=== PATIENT | female | born 1985 | race Two or more races ===

== ENCOUNTER 2020-11-05 23:17 | Emergency (ER) | payer SELFPAY ==
[~2020-11-05] VITALS: Ht 157.5 cm; Wt 49.9 kg
[2020-11-05] MEDS ORDERED: FAMOTIDINE (10MG/ML) 2ML VL IV ONE (23:45)
[2020-11-05] MEDS ORDERED: methylPREDNISolone SOD SUCC 125 MG/2 ML VL IV ONE (23:45)
[2020-11-06 01:00] VITALS: BP 103/69
== END 2020-11-06 01:23 | disposition home or self-care (01) ==
LOC: ER 23:17
DX: H05.221 Edema of right orbit (principal); T50.995A Adverse effect of other drugs, medicaments and biological substances, initial encounter; Y92.89 Other specified places as the place of occurrence of the external cause
CPT/HCPCS: 96374; 96375; 99284; J3490

== ENCOUNTER 2020-11-28 16:14 | Emergency (ER) | payer SELFPAY ==
[~2020-11-28] VITALS: Ht 154.9 cm; Wt 54.4 kg
[2020-11-28] MEDS ORDERED: diphenhdrAMINE HCL 50 MG/1 ML VL IM ONE (16:45)
[2020-11-28] MEDS ORDERED: methylPREDNISolone SOD SUCC 125 MG/2 ML VL IM ONE (16:45)
[2020-11-28 16:51] VITALS: BP 106/73
== END 2020-11-28 17:13 | disposition home or self-care (01) ==
LOC: ER 16:14
DX: T78.49XA Other allergy, initial encounter (principal); X58.XXXA Exposure to other specified factors, initial encounter
CPT/HCPCS: 96372; 99284; J1200; J2930

== ENCOUNTER 2022-08-01 18:45 | Emergency (ER) | payer SELFPAY ==
[~2022-08-01] VITALS: Ht 157.5 cm; Wt 49.5 kg
[2022-08-01 19:41] LABS: Urine Bacteria FEW /hpf (None Seen); Urine Blood Negative /uL (Negative); Urine Hyaline Cast FEW /lpf (0 - 2); Urine Mucus FEW (None Seen); Urine Specific Gravity 1.028 (1.001-1.035); Urine WBC 4 /hpf (0 - 5)
[2022-08-01 20:16] LABS: Basophils # (auto) 0 10 ^3/uL (0-0.2); Basophils % (auto) 0.3 % (0.0-2.0); Eosinophils # (auto) 0 10 ^3/uL (0-0.8); Eosinophils % (auto) 0.1 % (0.0-7.0); Hematocrit 38.7 % (36.0-46.0); Hemoglobin 13.7 g/dL (12.2-16.2); Lymphocytes # (auto) 0.6 10 ^3/uL (0.4-5.4); Mean Corpuscular Hgb Conc. 35.3 g/dL (32.0-36.0); Mean Corpuscular Volume 87.6 fL (80.0-100.0); Monocytes # (auto) 0.4 10 ^3/uL (0-1.3); Monocytes % (auto) 9.9 % (0.0-12.0); Neutrophils # (auto) 3.1 10 ^3/uL (1.6-8.6); Neutrophils % (auto) 75.7 % (37.0-80.0); Nucleated Red Blood Cells % 0.7 %; Red Blood Cells 4.42 10^6/uL (4.0-5.20); Red Cell Distribution Width 12.7 % (11.8-14.3); White Blood Cell 4.1 10^3/uL (4.4-10.8)
[2022-08-01 20:40] LABS: Potassium 3.5 mmol/L (3.5-5.1)
[2022-08-01 20:45] LABS: Albumin 3.8 g/dL (3.4-5.0); BUN/Creatinine Ratio 14.1 (10.0-20.0); Calcium 8.9 mg/dL (8.5-10.1)
[2022-08-01 20:47] LABS: Bilirubin, Total 0.5 mg/dL (0.2-1.0); Total Protein 7.7 g/dL (6.4-8.2)
[2022-08-02] MEDS ORDERED: NITR-87 PO (03:18)
[2022-08-02 03:30] VITALS: BP 110/80
== END 2022-08-02 03:33 | disposition home or self-care (01) ==
LOC: ER 18:45
DX: O20.0 Threatened abortion (principal); N39.0 Urinary tract infection, site not specified; Z3A.01 Less than 8 weeks gestation of pregnancy; Z86.16 Personal history of COVID-19
CPT/HCPCS: 36415; 76801; 80053; 81001; 84702; 85025